=== PATIENT | female | born 1950 | race Caucasian/White ===

== ENCOUNTER → 2017-04-29 | Outpatient (CLI) | payer BC, OTHER ==
[~2017-04-29] MED LIST: CAR3.125 PO; CARV25TA77 PO; FUR20 PO; LIS5 PO; NO ROUTINE MEDS; WAR5 PO; WARF-12 PO; WARF5VIA3 IV
== END ==
LOC: LAB 09:20
PROVIDERS: ATTEND Internal Medicine Cardiovascular Disease
DX: I48.2 Chronic atrial fibrillation (principal); I25.10 Atherosclerotic heart disease of native coronary artery without angina pectoris; I34.0 Nonrheumatic mitral (valve) insufficiency; E78.00 Pure hypercholesterolemia, unspecified
CPT/HCPCS: 36415; 82310; 82374; 82435; 82465; 82565; 82947; 83718; 84132; 84295; 84478; 84520